=== PATIENT | male | born 1965 | race African-American/Black ===

== ENCOUNTER 2017-04-25 18:22 | Inpatient (IN) | payer MEDICAID, OTHER ==
[~2017-04-25] VITALS: Ht 180.3 cm; Wt 91.2 kg
[~2017-04-25 18:22] MED LIST: BENA20TA3 PO; CALC-36 PO; EMTR1TAB13 PO; ETOMIDATE 2MG/ML 10ML VIAL IV ONE; FOLI-43 PO; NORMAL SALINE 0.9% 10 ML SYR ONE; VECURONIUM BROMIDE 10 MG/VIAL IV ONE
[2017-04-25] MEDS ORDERED: SODIUM CHLORIDE 0.9% 1,000 ML IV ONE ×2 (18:49)
[2017-04-25] MEDS ORDERED: VANCOMYCIN 1,500 MG in DEXT 5% WATER 250 ML IV STA (18:49)
[2017-04-25] MEDS ORDERED: NALOXONE HCL 0.4 MG/ML 1ML VIAL IV PRN (19:00)
[2017-04-25] MEDS ORDERED: MEROPENEM 1,000 MG in SODIUM CHLORIDE 0.9% 100 ML IV ONE (19:00)
[2017-04-25 19:15] LABS: CLARITY URINE CLEAR (CLEAR); COLOR URINE DARK YELLOW (YELLOW); KETONES URINE TRACE (NEGATIVE); LEUKOCYTE ESTERASE URINE NEGATIVE (NEGATIVE); NITRITE URINE NEGATIVE (NEGATIVE); OCCULT BLOOD URINE NEGATIVE (NEGATIVE); PH URINE 5.5 (4.5-8.0); PROTEIN URINE NEGATIVE (NEGATIVE); SPECIFIC GRAVITY URINE 1.021 (1.005-1.030)
[2017-04-25 19:16] LABS: BG BASE EXCESS 4.2 mmol/L (-2.0-2.0); BG CARBOXYHEMOGLOBIN 0.6 % (0.5-1.5); BG FRACTION INSPIRED OXYGEN 21; BG HCO3 ACT 28.9 mmol/L (22.0-26.0); BG METHEMOGLOBIN 0.2 % (0.0-1.5); BG OXYGEN SATURATION 92.9 % (92.0-98.5); BG OXYHEMOGLOBIN 92.2 % (94.0-97.0); BG PCO2 44.2 mmHg (35.0-45.0); BG PH 7.434 (7.350-7.450); BG PO2 71.5 mmHg (75.0-100.0); BG SAMPLE SITE RIGHT RADIAL; BG TOTAL HEMOGLOBIN 10.7 g/dL (12.0-18.0); BG VENT MODE ROOM AIR
[2017-04-25 19:35] LABS: *AMPHETAMINES SCREEN URINE NEGATIVE (NEGATIVE); *BARBITURATES SCREEN URINE NEGATIVE (NEGATIVE); *BENZODIAZEPINES SCREEN URINE NEGATIVE (NEGATIVE); *COCAINE SCREEN URINE NEGATIVE (NEGATIVE); CANNABINOID URINE SCREEN PRESUMTIVE POSITIVE (NEGATIVE); METHADONE URINE SCREEN NEGATIVE (NEGATIVE); OPIATES URINE SCREEN PRESUMTIVE POSITIVE (NEGATIVE); PHENCYCLIDINE URINE SCREEN NEGATIVE (NEGATIVE)
[2017-04-25] MEDS ORDERED: DEXT 5%/0.45% NACL 500ML 1,000 ML IV SCH (20:45)
[2017-04-25] MEDS ORDERED: DEXTROSE 50% WATER 50ML SYRINGE IV ONE (20:45)
[2017-04-25 20:59] LABS: CHLORIDE 103 mEq/L (98-107); HEMATOCRIT. 28.6 % (42.0-52.0); HEMOGLOBIN. 10.1 g/dL (14.0-18.0); MEAN CORPUSCULAR HEMOGLOBIN 40.3 pg (28.0-32.0); MEAN CORPUSCULAR VOLUME 113.6 fL (80.0-94.0); RED BLOOD CELL COUNT 2.51 mill/uL (4.7-6.1); RED CELL DISTRIBUTION WIDTH 17.6 % (11.6-14.6)
[2017-04-25 21:01] LABS: INR 2.9; PROTHROMBIN TIME 30.3 sec (9.4-11.6)
[2017-04-25 21:03] LABS: ETHANOL BLOOD < 10 mg/dL
[2017-04-25 21:04] LABS: AMMONIA 70 uMol/L (<32)
[2017-04-25 21:09] LABS: CREATINE KINASE 124 IU/L (39-308)
[2017-04-25 21:37] LABS: PLATELET 80 x1000/uL (130-400)
[2017-04-25 21:38] LABS: MEAN PLATELET VOLUME 10.2 fl (7.4-10.4)
[2017-04-25 21:40] LABS: PLATELET ESTIMATE DECREASED
[2017-04-25] MEDS ORDERED: SODIUM CHLORIDE 0.9% 1000ML BAG (SEPSIS BOLUS) IV ONE (21:45)
[2017-04-25] MEDS ORDERED: LORAZEPAM 2MG/ML CPJ IV ONE (23:15)
[2017-04-25] MEDS ORDERED: IOHEXOL-350 100 ML BOTTLE ONE (23:53)
[2017-04-26] VITALS (48 sets, daily range): BP systolic 77–104; BP diastolic 52–72
[2017-04-26] MEDS ORDERED: ETOMIDATE 2MG/ML 10ML VIAL IV SCH (00:32)
[2017-04-26] MEDS ORDERED: VECURONIUM BROMIDE 10 MG/VIAL IV SCH (00:32)
[2017-04-26] MEDS ORDERED: PROPOFOL 200MG/20ML VIAL IV SCH (00:32)
[2017-04-26] MEDS ORDERED: PROPOFOL 10MG/ML 100ML 100 ML IV PRN ×2 (00:45→12:45)
[2017-04-26 02:55] LABS: BG BASE EXCESS 4.5 mmol/L (-2.0-2.0); BG CARBOXYHEMOGLOBIN 0.4 % (0.5-1.5); BG DEOXYHEMOGLOBIN 1.8 % (0.0-5.0); BG FRACTION INSPIRED OXYGEN 50; BG HCO3 ACT 27.8 mmol/L (22.0-26.0); BG METHEMOGLOBIN 0.3 % (0.0-1.5); BG OXYGEN SATURATION 98.2 % (92.0-98.5); BG OXYHEMOGLOBIN 97.5 % (94.0-97.0); BG PCO2 36.4 mmHg (35.0-45.0); BG PH 7.501 (7.350-7.450); BG PO2 108.9 mmHg (75.0-100.0); BG SAMPLE SITE RIGHT RADIAL; BG TIDAL VOLUME(mL) 500 mL; BG TOTAL HEMOGLOBIN 10.1 g/dL (12.0-18.0); BG VENT MODE VENT - A/C; BG VENT RATE 14 set
[2017-04-26] MEDS ORDERED: LACTULOSE 20G/30ML UDC NG ONE (03:00)
[2017-04-26] MEDS ORDERED: INSULIN REGULAR (HUMULIN R) 300UNITS/3ML IV SCH (04:07)
[2017-04-26] MEDS ORDERED: DEXTROSE 50% WATER 50ML SYRINGE IV SCH (04:08)
[2017-04-26] MEDS ORDERED: SODIUM BICARBONATE 8.4% 1 MEQ/ML 50ML SYR IV SCH (04:08)
[2017-04-26] MEDS ORDERED: CALCIUM CHLORIDE 1GM/10ML SYR IV SCH (04:08)
[2017-04-26] MEDS ORDERED: SODIUM CHLORIDE 0.9% 1,000 ML IV ONE (05:10)
[2017-04-26] MEDS ORDERED: ONDANSETRON HCL 4MG/2ML VIAL IV PRN (08:30)
[2017-04-26 09:23] LABS: BG BASE EXCESS 2.8 mmol/L (-2.0-2.0); BG CARBOXYHEMOGLOBIN 0.3 % (0.5-1.5); BG DEOXYHEMOGLOBIN 1.2 % (0.0-5.0); BG METHEMOGLOBIN 0.3 % (0.0-1.5); BG OXYGEN SATURATION 98.8 % (92.0-98.5); BG OXYHEMOGLOBIN 98.2 % (94.0-97.0); BG PCO2 30.7 mmHg (35.0-45.0); BG PH 7.528 (7.350-7.450); BG PO2 145.9 mmHg (75.0-100.0); BG SAMPLE SITE RIGHT BRACHIAL; BG TIDAL VOLUME(mL) 500 mL; BG VENT MODE VENT - A/C; BG VENT RATE 14 set
[2017-04-26] MEDS: DEXT 5%/0.45% NACL 1000ML 1,000 ML IV SCH ×2 (10:13→23:59)
[2017-04-26] MEDS ORDERED: IPRATROPIUM/ALBUTEROL 0.5-3(2.5)MG/3ML NEB HHN PRN (10:45)
[2017-04-26] MEDS ORDERED: LACT10SO6 MT (13:16)
[2017-04-26] MEDS ORDERED: MORP15TA67 PO (13:16)
[2017-04-26] MEDS ORDERED: HYDR4TAB56 PO (13:16)
[2017-04-26] MEDS: MEROPENEM 500 MG in SODIUM CHLORIDE 0.9% 50 ML IV SCH ×2 (13:55→21:05)
[2017-04-26 14:43] LABS: HEMATOCRIT. 27.7 % (42.0-52.0); HEMOGLOBIN. 9.7 g/dL (14.0-18.0); MEAN CORPUSCULAR HEMOGLOBIN 40.1 pg (28.0-32.0); MEAN CORPUSCULAR VOLUME 114.5 fL (80.0-94.0); MEAN PLATELET VOLUME 10.2 fl (7.4-10.4); PLATELET 68 x1000/uL (130-400); RED BLOOD CELL COUNT 2.42 mill/uL (4.7-6.1); RED CELL DISTRIBUTION WIDTH 17.1 % (11.6-14.6)
[2017-04-26 15:05] LABS: CHLORIDE 106 mEq/L (98-107)
[2017-04-26] MEDS: NOREPINEPHRINE 8 MG in DEXT 5% WATER 242 ML IV PRN (15:05)
[2017-04-26 15:22] LABS: PLATELET ESTIMATE DECREASED
[2017-04-26] MEDS ORDERED: DEXTROSE 50% WATER 50ML SYRINGE IV PRN (15:30)
[2017-04-26] MEDS: AZITHROMYCIN 500 MG in DEXT 5% WATER 250 ML IV SCH (15:35)
[2017-04-26] MEDS: SULFAMETHOXAZOLE/TRIMETHOPRIM 400/80MG TAB PO SCH ×2 (15:46→21:04)
[2017-04-26] MEDS: BLOOD SUGAR DIAGNOSTIC STRIP TEST SCH ×3 (15:51→23:26)
[2017-04-26] MEDS: PANTOPRAZOLE SODIUM 40 MG/VIAL IV SCH ×2 (16:12→23:23)
[2017-04-26] MEDS ORDERED: ALBUMIN HUMAN 25GM/100ML (25%) IV NR (16:30)
[2017-04-26] MEDS: VANCOMYCIN 1250MG in DEXTROSE 5% WATER 250ML IV SCH (18:22)
[2017-04-26] MEDS: IPRATROPIUM/ALBUTEROL 0.5-3(2.5)MG/3ML NEB HHN SCH (20:06)
[2017-04-27] VITALS (90 sets, daily range): BP systolic 86–127; BP diastolic 55–88
[2017-04-27] MEDS: IPRATROPIUM/ALBUTEROL 0.5-3(2.5)MG/3ML NEB HHN SCH ×7 (00:24→23:30)
[2017-04-27] MEDS: NOREPINEPHRINE 8 MG in DEXT 5% WATER 242 ML IV PRN ×3 (02:52→18:32)
[2017-04-27] MEDS: BLOOD SUGAR DIAGNOSTIC STRIP TEST SCH ×6 (04:50→23:47)
[2017-04-27] MEDS: MEROPENEM 500 MG in SODIUM CHLORIDE 0.9% 50 ML IV SCH (05:03)
[2017-04-27] MEDS: VANCOMYCIN 1250MG in DEXTROSE 5% WATER 250ML IV SCH (05:03)
[2017-04-27 05:29] LABS: HEMATOCRIT. 27.9 % (42.0-52.0); HEMOGLOBIN. 9.8 g/dL (14.0-18.0); MEAN CORPUSCULAR HEMOGLOBIN 40.1 pg (28.0-32.0); MEAN CORPUSCULAR VOLUME 114.5 fL (80.0-94.0); RED BLOOD CELL COUNT 2.44 mill/uL (4.7-6.1); RED CELL DISTRIBUTION WIDTH 17.2 % (11.6-14.6)
[2017-04-27 05:36] LABS: CHLORIDE 104 mEq/L (98-107)
[2017-04-27 08:05] LABS: BG BASE EXCESS -3.4 mmol/L (-2.0-2.0); BG CARBOXYHEMOGLOBIN 0.2 % (0.5-1.5); BG DEOXYHEMOGLOBIN 1.4 % (0.0-5.0); BG FRACTION INSPIRED OXYGEN 40; BG HCO3 ACT 19.2 mmol/L (22.0-26.0); BG METHEMOGLOBIN 0.4 % (0.0-1.5); BG OXYGEN SATURATION 98.6 % (92.0-98.5); BG PCO2 27.3 mmHg (35.0-45.0); BG PH 7.465 (7.350-7.450); BG PO2 127.7 mmHg (75.0-100.0); BG SAMPLE SITE RIGHT BRACHIAL; BG TIDAL VOLUME(mL) 500 mL; BG TOTAL HEMOGLOBIN 11.1 g/dL (12.0-18.0); BG VENT MODE VENT - A/C; BG VENT RATE 12 set
[2017-04-27 08:27] LABS: ATYPICAL LYMPHOCYTES 1; NUCLEATED RED BLOOD CELLS 2 /100 WBC; PLATELET ESTIMATE DECREASED
[2017-04-27 08:29] LABS: PLATELET 68 x1000/uL (130-400)
[2017-04-27] MEDS: SULFAMETHOXAZOLE/TRIMETHOPRIM 400/80MG TAB PO SCH (08:40)
[2017-04-27] MEDS: PANTOPRAZOLE SODIUM 40 MG/VIAL IV SCH ×2 (08:40→21:00)
[2017-04-27 09:06] LABS: ABSOLUTE MONOCYTES 1.5 x10E3/uL (0.1-0.9); ABSOLUTE NEUTROPHILS 7.3 x10E3/uL (1.4-7.0); BASOPHILS 0 % (Not Estab.); HEMATOCRIT 27.6 % (37.5-51.0); HEMATOLOGY COMMENT Note: (.); HEMOGLOBIN 9.9 g/dL (13.0-17.7); LYMPHOCYTES 10 % (Not Estab.); MEAN CORPUSCULAR HEMOGLOBIN 37.8 pg (26.6-33.0); MEAN CORPUSCULAR HGB CONC. 35.9 g/dL (31.5-35.7); MEAN CORPUSCULAR VOLUME 105 fL (79-97); MONOCYTES 15 % (Not Estab.); NEUTROPHILS 57 % (Not Estab.); NUCLEATED RBC 1 % (0 - 0); PLATELETS 75 x10E3/uL (150-379); RBC 2.62 x10E6/uL (4.14-5.80); WBC 10.2 x10E3/uL (3.4-10.8)
[2017-04-27 09:13] LABS: INR 3.6; PARTIAL THROMBOPLASTIN TIME 39.9 sec (23.4-31.0)
[2017-04-27] MEDS: AZITHROMYCIN 500 MG in DEXT 5% WATER 250 ML IV SCH (09:39)
[2017-04-27] MEDS ORDERED: PROPOFOL 10MG/ML 100ML 100 ML IV PRN (10:01)
[2017-04-27 13:12] LABS: % CD 3 POS. LYMPHOCYTES 77.2 % (57.5-86.2); % CD 4 POS. LYMPHOCYTES 38.2 % (30.8-58.5); % CD 8 POS. LYMPH 38.2 % (12.0-35.5); ABSOLUTE CD 3 772 /uL (622-2402); ABSOLUTE CD 4 HELPER 382 /uL (359-1519); ABSOLUTE CD 8 SUPPRESSOR 382 /uL (109-897)
[2017-04-27] MEDS ORDERED: PHYTONADIONE 10MG/ML AMP SUBCUT NR (14:30)
[2017-04-27] MEDS ORDERED: SODIUM POLYSTYRENE SULFONATE 15 G/60 ML BOT PO NR (15:41)
[2017-04-27] MEDS ORDERED: SODIUM POLYSTYRENE SULFONATE 15 G/60 ML BOT PR NR (16:00)
[2017-04-27] MEDS: MEROPENEM 1000MG in NORMAL SALINE 100ML IV SCH (18:32)
[2017-04-27 20:34] LABS: CARCINO EMBRYONIC ANTIGEN 0.9 ng/ml
[2017-04-27 20:46] LABS: HEPATITIS B SURFACE ANTIGEN NEGATIVE
[2017-04-27 21:14] LABS: HEPATITIS B CORE AB IGM NEGATIVE
[2017-04-27 21:15] LABS: HEPATITIS A AB IGM NEGATIVE (NEGATIVE)
[2017-04-27] MEDS: PHYTONADIONE 10MG/ML AMP SUBCUT SCH (23:59)
[2017-04-28] VITALS (93 sets, daily range): BP systolic 82–141; BP diastolic 52–89
[2017-04-28] MEDS: DEXT 5%/0.45% NACL 1000ML 1,000 ML IV SCH ×2 (00:38→11:44)
[2017-04-28] MEDS: NOREPINEPHRINE 8 MG in DEXT 5% WATER 242 ML IV PRN (02:49)
[2017-04-28] MEDS: IPRATROPIUM/ALBUTEROL 0.5-3(2.5)MG/3ML NEB HHN SCH ×5 (03:22→20:57)
[2017-04-28] MEDS: BLOOD SUGAR DIAGNOSTIC STRIP TEST SCH ×5 (04:00→20:00)
[2017-04-28] MEDS: MEROPENEM 1000MG in NORMAL SALINE 100ML IV SCH ×2 (05:35→17:45)
[2017-04-28 05:43] LABS: HEMATOCRIT. 27.2 % (42.0-52.0); HEMOGLOBIN. 9.4 g/dL (14.0-18.0); MEAN CORPUSCULAR HEMOGLOBIN 39.7 pg (28.0-32.0); MEAN CORPUSCULAR VOLUME 114.9 fL (80.0-94.0); RED BLOOD CELL COUNT 2.37 mill/uL (4.7-6.1); RED CELL DISTRIBUTION WIDTH 17.2 % (11.6-14.6)
[2017-04-28 06:04] LABS: PARTIAL THROMBOPLASTIN TIME 41.3 sec (23.4-31.0)
[2017-04-28 06:13] LABS: PROTHROMBIN TIME 41.3 sec (9.4-11.6)
[2017-04-28 08:23] LABS: BG BASE EXCESS -3.7 mmol/L (-2.0-2.0); BG CARBOXYHEMOGLOBIN 0.3 % (0.5-1.5); BG HCO3 ACT 19.6 mmol/L (22.0-26.0); BG METHEMOGLOBIN 0.3 % (0.0-1.5); BG OXYHEMOGLOBIN 96.4 % (94.0-97.0); BG PCO2 29.8 mmHg (35.0-45.0); BG PH 7.436 (7.350-7.450); BG PO2 95.6 mmHg (75.0-100.0); BG SAMPLE SITE RIGHT RADIAL; BG TIDAL VOLUME(mL) 500 mL; BG TOTAL HEMOGLOBIN 10.6 g/dL (12.0-18.0); BG VENT MODE VENT - A/C; BG VENT RATE 12 set
[2017-04-28] MEDS ORDERED: VANCOMYCIN 1250MG in DEXTROSE 5% WATER 250ML IV SCH (09:00)
[2017-04-28 09:08] LABS: PROTHROMBIN TIME 41.3 sec (9.4-11.6)
[2017-04-28 09:24] LABS: NUCLEATED RED BLOOD CELLS 1 /100 WBC; PLATELET ESTIMATE DECREASED
[2017-04-28] MEDS: PANTOPRAZOLE SODIUM 40 MG/VIAL IV SCH ×2 (09:45→21:21)
[2017-04-28] MEDS ORDERED: PHYTONADIONE 10MG/ML AMP SUBCUT SCH (10:00)
[2017-04-28] MEDS ORDERED: HEPARIN SODIUM 1,000 UNIT/1ML VIAL IV NR (11:30)
[2017-04-28] MEDS: PHYTONADIONE 10MG/ML AMP SUBCUT SCH (11:40)
[2017-04-28] MEDS: AZITHROMYCIN 500 MG in DEXT 5% WATER 250 ML IV SCH (11:42)
[2017-04-28] MEDS: NOREPINEPHRINE 16 MG in DEXT 5% WATER 234 ML IV PRN (13:07)
[2017-04-28] MEDS: MEROPENEM 500MG in NORMAL SALINE 50ML IV SCH (17:56)
[2017-04-29] VITALS (94 sets, daily range): BP systolic 88–119; BP diastolic 47–91
[2017-04-29] MEDS: BLOOD SUGAR DIAGNOSTIC STRIP TEST SCH ×6 (00:25→20:26)
[2017-04-29] MEDS: IPRATROPIUM/ALBUTEROL 0.5-3(2.5)MG/3ML NEB HHN SCH ×6 (00:43→20:14)
[2017-04-29] MEDS: DEXT 5%/0.45% NACL 1000ML 1,000 ML IV SCH ×2 (04:31→22:41)
[2017-04-29] MEDS: MEROPENEM 500MG in NORMAL SALINE 50ML IV SCH ×2 (06:28→17:06)
[2017-04-29 08:13] LABS: BG BASE EXCESS -4.2 mmol/L (-2.0-2.0); BG CARBOXYHEMOGLOBIN 0.3 % (0.5-1.5); BG DEOXYHEMOGLOBIN 2.5 % (0.0-5.0); BG FRACTION INSPIRED OXYGEN 35; BG HCO3 ACT 19.4 mmol/L (22.0-26.0); BG METHEMOGLOBIN 0.3 % (0.0-1.5); BG OXYGEN SATURATION 97.5 % (92.0-98.5); BG OXYHEMOGLOBIN 96.9 % (94.0-97.0); BG PCO2 30.2 mmHg (35.0-45.0); BG PH 7.426 (7.350-7.450); BG PO2 110.1 mmHg (75.0-100.0); BG SAMPLE SITE RIGHT BRACHIAL; BG TIDAL VOLUME(mL) 500 mL; BG TOTAL HEMOGLOBIN 9.5 g/dL (12.0-18.0); BG VENT MODE VENT - A/C; BG VENT RATE 12 set
[2017-04-29 08:58] LABS: HEMATOCRIT. 25.4 % (42.0-52.0); MEAN CORPUSCULAR HEMOGLOBIN 40.4 pg (28.0-32.0); MEAN CORPUSCULAR VOLUME 114.5 fL (80.0-94.0); RED BLOOD CELL COUNT 2.22 mill/uL (4.7-6.1); RED CELL DISTRIBUTION WIDTH 17.4 % (11.6-14.6)
[2017-04-29] MEDS: PANTOPRAZOLE SODIUM 40 MG/VIAL IV SCH ×2 (09:07→20:25)
[2017-04-29 10:02] LABS: PLATELET ESTIMATE MARKEDLY DECREASED
[2017-04-29 10:09] LABS: PLATELET 49 x1000/uL (130-400)
[2017-04-29] MEDS ORDERED: HEPARIN SODIUM 1,000 UNIT/1ML VIAL IV NR (10:30)
[2017-04-29] MEDS: AZITHROMYCIN 500 MG in DEXT 5% WATER 250 ML IV SCH (11:43)
[2017-04-29] MEDS: NOREPINEPHRINE 16 MG in DEXT 5% WATER 234 ML IV PRN (14:32)
[2017-04-29 22:11] LABS: PARTIAL THROMBOPLASTIN TIME 46.2 sec (23.4-31.0)
[2017-04-29 22:24] LABS: PROTHROMBIN TIME > 100.0 sec (9.4-11.6)
[2017-04-29 22:25] LABS: INR > 10.0
[2017-04-29] MEDS ORDERED: PHYTONADIONE 10MG/ML AMP SUBCUT NR (23:00)
[2017-04-30] VITALS (108 sets, daily range): BP systolic 63–184; BP diastolic 37–75
[2017-04-30] MEDS: BLOOD SUGAR DIAGNOSTIC STRIP TEST SCH ×6 (00:01→20:00)
[2017-04-30] MEDS: IPRATROPIUM/ALBUTEROL 0.5-3(2.5)MG/3ML NEB HHN SCH ×7 (00:06→23:47)
[2017-04-30] MEDS ORDERED: DEXTROSE 50% WATER 50ML SYRINGE IV PRN ×2 (04:30→05:00)
[2017-04-30] MEDS: MEROPENEM 500MG in NORMAL SALINE 50ML IV SCH ×2 (05:46→18:34)
[2017-04-30 06:00] LABS: HEMOGLOBIN. 8.9 g/dL (14.0-18.0); MEAN CORPUSCULAR HEMOGLOBIN 40.5 pg (28.0-32.0); MEAN CORPUSCULAR VOLUME 118.4 fL (80.0-94.0); MEAN PLATELET VOLUME 10.2 fl (7.4-10.4); RED BLOOD CELL COUNT 2.19 mill/uL (4.7-6.1); RED CELL DISTRIBUTION WIDTH 17.5 % (11.6-14.6)
[2017-04-30 06:22] LABS: PLATELET 42 x1000/uL (130-400)
[2017-04-30 08:08] LABS: BG BASE EXCESS -11.5 mmol/L (-2.0-2.0); BG CARBOXYHEMOGLOBIN 0.9 % (0.5-1.5); BG DEOXYHEMOGLOBIN 2.9 % (0.0-5.0); BG FRACTION INSPIRED OXYGEN 35; BG HCO3 ACT 12.2 mmol/L (22.0-26.0); BG OXYGEN SATURATION 97.1 % (92.0-98.5); BG OXYHEMOGLOBIN 96.2 % (94.0-97.0); BG PCO2 21.8 mmHg (35.0-45.0); BG PH 7.367 (7.350-7.450); BG PO2 99.5 mmHg (75.0-100.0); BG SAMPLE SITE RIGHT BRACHIAL; BG TIDAL VOLUME(mL) 500 mL; BG TOTAL HEMOGLOBIN 9.5 g/dL (12.0-18.0); BG VENT MODE VENT - A/C; BG VENT RATE 12 set
[2017-04-30 08:36] LABS: PARTIAL THROMBOPLASTIN TIME 50.2 sec (23.4-31.0)
[2017-04-30] MEDS: NOREPINEPHRINE 16 MG in DEXT 5% WATER 234 ML IV PRN ×2 (08:39→17:17)
[2017-04-30] MEDS: PANTOPRAZOLE SODIUM 40 MG/VIAL IV SCH ×2 (08:46→21:29)
[2017-04-30] MEDS: AZITHROMYCIN 500 MG in DEXT 5% WATER 250 ML IV SCH (08:56)
[2017-04-30 09:11] LABS: CHLORIDE 98 mEq/L (98-107)
[2017-04-30 10:28] LABS: NUCLEATED RED BLOOD CELLS 1 /100 WBC; PLATELET ESTIMATE MARKEDLY DECREASED
[2017-04-30 10:31] LABS: PROTHROMBIN TIME > 100.0 sec (9.4-11.6)
[2017-04-30 10:33] LABS: INR > 10.0
[2017-04-30 10:44] LABS: D-DIMER > 35.20 mg/L FEU (<0.50)
[2017-04-30 10:45] LABS: FIBRINOGEN < 40 mg/dL (200-400)
[2017-04-30] MEDS ORDERED: SODIUM BICARBONATE 8.4% 1 MEQ/ML 50ML SYR IV NR (11:00)
[2017-04-30] MEDS ORDERED: CALCIUM GLUCONATE 100MG/ML 10ML VIAL IV ONE (11:00)
[2017-04-30] MEDS ORDERED: SODIUM POLYSTYRENE SULFONATE 15 G/60 ML BOT PO NR (11:00)
[2017-04-30] MEDS ORDERED: MORPHINE SULFATE 4 MG/ML CPJ (NOT FOR IM USE) IV PRN (11:30)
[2017-04-30] MEDS ORDERED: PHYTONADIONE 10MG/ML AMP SUBCUT SCH (11:45)
[2017-04-30] MEDS ORDERED: PHENYLEPHRINE 10 MG in DEXT 5% WATER 249 ML IV PRN (11:45)
[2017-04-30] MEDS ORDERED: CALCIUM GLUCONATE 1000 MG in DEXTROSE 5% WATER 100 ML IV NR (12:00)
[2017-04-30] MEDS ORDERED: PHENYLEPHRINE 80 MG in DEXT 5% WATER 500 ML IV PRN (13:00)
[2017-04-30 13:30] LABS: AMMONIA 13 uMol/L (<32)
[2017-04-30] MEDS: PHENYLEPHRINE 80 MG in DEXT 5% WATER 492 ML IV PRN ×2 (13:49→21:21)
[2017-04-30] MEDS: VASOPRESSIN 10 UNIT in SODIUM CHLORIDE 0.9% 99.5 ML IV PRN ×2 (13:50→20:47)
[2017-04-30] MEDS ORDERED: ACETYLCYSTEINE 100MG/ML 10% VIAL 4ML INH NR (20:00)
[2017-05-01] VITALS (57 sets, daily range): BP systolic 35–187; BP diastolic 15–116
[2017-05-01] MEDS: BLOOD SUGAR DIAGNOSTIC STRIP TEST SCH ×3 (00:16→07:35)
[2017-05-01] MEDS: DEXT 5%/0.45% NACL 1000ML 1,000 ML IV SCH (00:16)
[2017-05-01] MEDS ORDERED: DEXTROSE 50% WATER 50ML SYRINGE IV ONE (01:15)
[2017-05-01] MEDS ORDERED: INSULIN REGULAR (HUMULIN R) UD 100 UNITS/ML SYR IV NR (01:15)
[2017-05-01] MEDS ORDERED: SODIUM BICARBONATE 8.4% 1 MEQ/ML 50ML SYR IV NR (01:15)
[2017-05-01] MEDS ORDERED: ACETYLCYSTEINE 100MG/ML 10% VIAL 4ML INH NR (01:15)
[2017-05-01] MEDS ORDERED: SODIUM POLYSTYRENE SULFONATE 15 G/60 ML BOT PO NR (01:15)
[2017-05-01] MEDS: NOREPINEPHRINE 16 MG in DEXT 5% WATER 234 ML IV PRN (01:31)
[2017-05-01] MEDS: IPRATROPIUM/ALBUTEROL 0.5-3(2.5)MG/3ML NEB HHN SCH ×2 (04:34→08:33)
[2017-05-01] MEDS: PHENYLEPHRINE 80 MG in DEXT 5% WATER 492 ML IV PRN (05:25)
[2017-05-01] MEDS: MEROPENEM 500MG in NORMAL SALINE 50ML IV SCH (05:42)
[2017-05-01 05:45] LABS: MEAN CORPUSCULAR HEMOGLOBIN 40.9 pg (28.0-32.0); MEAN CORPUSCULAR VOLUME 120.5 fL (80.0-94.0); MEAN PLATELET VOLUME 9.9 fl (7.4-10.4); RED BLOOD CELL COUNT 1.58 mill/uL (4.7-6.1); RED CELL DISTRIBUTION WIDTH 17.9 % (11.6-14.6)
[2017-05-01] MEDS ORDERED: ACETYLCYSTEINE 200MG/ML 20% VIAL 4ML INH NR (06:00)
[2017-05-01 06:18] LABS: HEMOGLOBIN. 6.5 g/dL (14.0-18.0)
[2017-05-01 06:19] LABS: PLATELET 24 x1000/uL (130-400)
[2017-05-01 06:35] LABS: PHOSPHORUS 10.7 mg/dL (2.5-4.9)
[2017-05-01] MEDS ORDERED: SODIUM POLYSTYRENE SULFONATE 15 G/60 ML BOT PO SCH (07:15)
[2017-05-01 07:42] LABS: BG BASE EXCESS -16.8 mmol/L (-2.0-2.0); BG CARBOXYHEMOGLOBIN 1.7 % (0.5-1.5); BG DEOXYHEMOGLOBIN 13.1 % (0.0-5.0); BG FRACTION INSPIRED OXYGEN 100; BG METHEMOGLOBIN 1.4 % (0.0-1.5); BG OXYGEN SATURATION 86.5 % (92.0-98.5); BG OXYHEMOGLOBIN 83.8 % (94.0-97.0); BG PCO2 34.2 mmHg (35.0-45.0); BG PH 7.125 (7.350-7.450); BG PO2 75.4 mmHg (75.0-100.0); BG SAMPLE SITE RIGHT BRACHIAL; BG TIDAL VOLUME(mL) 500 mL; BG TOTAL HEMOGLOBIN 6.6 g/dL (12.0-18.0); BG VENT MODE VENT - A/C; BG VENT RATE 12 set
[2017-05-01] MEDS ORDERED: SODIUM BICARBONATE 8.4% 1 MEQ/ML 50ML SYR IV SCH (08:00)
[2017-05-01] MEDS ORDERED: SODIUM BICARBONATE 100 MEQ in DEXTROSE 5% WATER 900 ML IV SCH (08:00)
[2017-05-01] MEDS: PANTOPRAZOLE SODIUM 40 MG/VIAL IV SCH (08:57)
[2017-05-01] MEDS: VASOPRESSIN 10 UNIT in SODIUM CHLORIDE 0.9% 99.5 ML IV PRN (08:57)
[2017-05-01 09:27] LABS: PROTHROMBIN TIME 96.8 sec (9.4-11.6)
[2017-05-01 09:40] LABS: INR 9.2
[2017-05-01] MEDS ORDERED: DOPAMINE 400MG PREMIX 250 ML IV PRN (10:00)
[2017-05-01 11:52] LABS: PLATELET ESTIMATE MARKEDLY DECREASED
[2017-05-01] MEDS ORDERED: SODIUM BICARBONATE 7.5% 0.9 MEQ/ML 50ML SYR IV ONE (13:00)
[2017-05-01] MEDS ORDERED: EPINEPHRINE 0.1MG/ML (1:10,000) 10ML SYR ONE (13:00)
== END 2017-05-01 11:00 | disposition expired | DRG 720 ==
LOC: ER 18:25 → MICUNO 04-26 02:24 → EDBEDREQ 04-26 02:27 → EDBEDREQTM 04-26 02:27 → EDBEDREQSVC 04-26 02:27 → ENRESERV 04-26 08:26
PROVIDERS: ADMIT Hospitalist; ATTEND Hospitalist
PROC: 0BH17EZ Insertion of Endotracheal Airway into Trachea, Via Natural or Artificial Opening (ICD-10-PCS; principal; 2017-04-26)
PROC: 5A1955Z Respiratory Ventilation, Greater than 96 Consecutive Hours (ICD-10-PCS; 2017-04-26)
PROC: 02HV33Z Insertion of Infusion Device into Superior Vena Cava, Percutaneous Approach (ICD-10-PCS; 2017-04-26)
PROC: 02HV33Z Insertion of Infusion Device into Superior Vena Cava, Percutaneous Approach (ICD-10-PCS; 2017-04-28)
PROC: B548ZZA Ultrasonography of Superior Vena Cava, Guidance (ICD-10-PCS; 2017-04-28)
PROC: 30233L1 Transfusion of Nonautologous Fresh Plasma into Peripheral Vein, Percutaneous Approach (ICD-10-PCS; 2017-04-30)
PROC: 30233N1 Transfusion of Nonautologous Red Blood Cells into Peripheral Vein, Percutaneous Approach (ICD-10-PCS; 2017-04-30)
PROC: 30233K1 Transfusion of Nonautologous Frozen Plasma into Peripheral Vein, Percutaneous Approach (ICD-10-PCS; 2017-04-30)
PROC: 5A12012 Performance of Cardiac Output, Single, Manual (ICD-10-PCS; 2017-05-01)
DX: A41.9 Sepsis, unspecified organism (principal); J96.00 Acute respiratory failure, unspecified whether with hypoxia or hypercapnia; D65 Disseminated intravascular coagulation [defibrination syndrome]; K72.00 Acute and subacute hepatic failure without coma; K76.7 Hepatorenal syndrome; R18.0 Malignant ascites; J69.0 Pneumonitis due to inhalation of food and vomit; C78.6 Secondary malignant neoplasm of retroperitoneum and peritoneum; K92.2 Gastrointestinal hemorrhage, unspecified; C22.9 Malignant neoplasm of liver, not specified as primary or secondary; D53.9 Nutritional anemia, unspecified; E43 Unspecified severe protein-calorie malnutrition; N17.9 Acute kidney failure, unspecified; E11.649 Type 2 diabetes mellitus with hypoglycemia without coma; B19.20 Unspecified viral hepatitis C without hepatic coma; E87.1 Hypo-osmolality and hyponatremia; E87.5 Hyperkalemia; E87.70 Fluid overload, unspecified; I10 Essential (primary) hypertension; J90 Pleural effusion, not elsewhere classified; K74.60 Unspecified cirrhosis of liver; R65.21 Severe sepsis with septic shock; Z68.28 Body mass index [BMI] 28.0-28.9, adult
CPT/HCPCS: 31500; 36415; 36569; 36600; 51702; 70450; 70460; 71045; 71275; 74177; 76937; 80048; 80053; 80202; 80305; 80307; 80329; 81003; 82105; 82140; 82375; 82378; 82550; 82805; 82962; 83605; 83615; 83690; 83735; 83880; 84100; 84132; 84478; 84484; 84520; 85025; 85379; 85384; 85610; 85730; 86359; 86360; 86705; 86709; 86803; 86850; 86900; 86920; 86927; 87040; 87070; 87086; 87340; 92950; 93005; 93970; 94002; 94003; 94640; 96365; 96366; 96375; 99291; A4216; A6261; C1725; C1752; C1769; C1887; C9113; G0482; J0456; J0610; J1265; J1644; J1815; J2060; J2185; J2270; J2310; J2370; J2704; J3370; J3430; J3490; J7030; J7040; J7050; J7060; J7070; J7608; J7620; P9016; P9017; P9047; Q9967